=== PATIENT | female | born 1960 | race Caucasian/White ===

== ENCOUNTER 2023-12-25 14:53 | Emergency (ER) | payer MEDICARE, SELFPAY ==
[2023-12-25 14:59] VITALS: BP 148/84; PULSE 50; RESP 16; TEMP 36.4; O2SAT 98; BMI 32.4
--- NOTE | 2023-12-25 15:04 | ED_ITS ---
HPI - Extremity Injury (Lower) <Isa Garcia PA-C - Last Filed: 12/25/23 17:54> General Chief Complaint: Extremity Injury, Lower Stated Complaint: GLF, No Thinners, L Hip/Groin Pain Time Seen by Provider: 12/25/23 15:03 Source: patient Mode of arrival: Ambulatory History of Present Illness HPI Narrative: Patient is a very pleasant 63-year-old female that presents to the emergency room department today with her with complaint of left groin, left buttock pain. Patient fell several days ago after she tripped on [place], she slipped over a piece of wood. Her left leg came out from underneath her, and extended out as she fell. She immediately had some discomfort and pain in the left groin. Which is continued. Patient is having difficulty ambulating due to the discomfort and pain. She has a large bruise on her buttock area. And pain down into the groin area. She does not have any difficulty urinating or having a bowel movement. She does not have any rectal numbness or vaginal n umbness. She does not have any vaginal bulging. Position of comfort is sitting. Position that exacerbates the discomfort and pain is rolling over in bed, standing, or attempting to ambulate. She is able to do all these but has substantial discomfort. Patient has been taking [id number] ibuprofen, Tylenol and Aleve. She has been using ice. Currently when she is sitting she does not have any discomfort or pain. There was no loss of consciousness. She has no other further complaints except some mild elbow discomfort and some wrist pain however that pain has improved over the last several days since the fall. Related Data Previous Rx's Medication Instructions Recorded ondansetron 4 mg disintegrating 4 mg PO BID-TID PRN nausea and 12/25/23 tablet vomiting #10 tabs prednisone 5 mg tablets in a dose See Rx Instructions PO .COMPLEX 12/25/23 pack #21 ea tramadol 50 mg tablet 50 mg PO Q6H PRN pain #20 tabs 12/25/23 Allergies Allergy/AdvReac Type Severity Reaction Status Date / Time oxytetracycline Allergy Verified 12/25/23 15:04 [From Terramycin] piperacillin [From Zosyn] Allergy Hives Verified 12/25/23 15:04 tazobactam [From Zosyn] Allergy Hives Verified 12/25/23 15:04 tetracycline Allergy Verified 12/25/23 15:04 hydromorphone [From Dilaudid] AdvReac Severe Nausea Verified 12/25/23 16:59 Review of Systems <Isa Garcia PA-C - Last Filed: 12/25/23 17:54> Review of Systems Narrative: Negative except as above Musculoskeletal Comments: Left groin pain, left buttock pain. No extremity pain, no back pain. Neurologic Comments: No weakness numbness tingling to the left lower extremity. Patient History <Isa Garcia PA-C - Last Filed: 12/25/23 17:54> Social History Smoking Status: Never smoker Smoking Status: Never smoker alcohol intake frequency: holidays/special occasions only Substance Use Type: does not use Exam <Isa Garcia PA-C - Last Filed: 12/25/23 17:54> Initial Vital Signs Initial Vital Signs: Vital Signs Temperature 97.5 F L 12/25/23 14:59 Pulse Rate 50 L 12/25/23 14:59 Respiratory Rate 16 12/25/23 14:59 Blood Pressure 148/84 H 12/25/23 14:59 Pulse Oximetry 98 12/25/23 14:59 Oxygen Delivery Method Room Air 12/25/23 14:59 Reviewed Const General: cooperative, healthy appearing, comfortable, well developed, well groomed, No acute distress and No in distress Nutritional Appearance: well nourished and overweight Eyes General: Yes appearance normal, both eyes and all related structures Pupils: PERRL EOM: EOM intact bilaterally Skin General: no rashes or lesions noted and turgor normal Neuro General: patient alert, patient awake, patient oriented x3, oriented, tone normal and normal light touch, pain and propioception Cranial Nerves: CN's II-XI intact bilaterally Cognition: normal cognition Speech: speech normal Gait: other (Not tested due to pain however the patient was able to stand and pivot to g) Extrem Left upper extremity: normal to inspection and normal capillary refill; no cyanosis and no edema Other: Left lower extremity patient has no discomfort and pain in the lower lumbar area. She has some mild discomfort in the buttock area. She states she has a bruise. Patient has pain that radiates down into the left groin. She has no pain over the trochanteric area. Her down into the femur. She has no pain in the knee, tib-fib area, foot or ankle. She has pain with movement of the hip, straight leg, and flexing and extending the knee causes discomfort in the groin area. She has discomfort and pain with attempting to raise the knee towards the ceiling. She is pain with palpation of the left groin. No obvious deformity. Cap refill is preserved. Pulses are present. No edema is noted. <Marissa Centeno DO - Last Filed: 01/06/24 07:51> Initial Vital Signs Initial Vital Signs: Vital Signs Temperature 97.5 F L 12/25/23 14:59 Pulse Rate 50 L 12/25/23 14:59 Respiratory Rate 16 12/25/23 14:59 Blood Pressure 148/84 H 12/25/23 14:59 Pulse Oximetry 98 12/25/23 14:59 Oxygen Delivery Method Room Air 12/25/23 14:59 Course <Isa Garcia PA-C - Last Filed: 12/25/23 17:54> Orders Ordered: Discontinued Medications Diphenhydramine HCl (Diphenhydramine 50 Mg/Ml Vial) 25 mg IM NOW ONE Stop: 12/25/23 17:02 Last Admin: 12/25/23 17:05 Dose: 25 mg Documented By: NCI Hydromorphone HCl (Hydromorphone 1 Mg Inj) 1 mg IM NOW ONE Stop: 12/25/23 15:27 Last Admin: 12/25/23 15:53 Dose: 1 mg Documented By: NIC Ondansetron HCl (Ondansetron 4 Mg Odt) 4 mg SL NOW ONE Stop: 12/25/23 15:27 Last Admin: 12/25/23 15:38 Dose: 4 mg Documented By: NIC Ondansetron HCl (Ondansetron 4 Mg Odt) 4 mg SL NOW ONE Stop: 12/25/23 16:24 Last Admin: 12/25/23 16:26 Dose: 4 mg Documented By: NIC 1 mg of IM Dilaudid 4 mg of sublingual Zofran Reevaluation(s) Reevaluation #1: Patient slightly nauseous at about 4:14 p.m. from the Dilaudid. Patient currently sitting in the chair, she is reclined, she has given a cool rag. She has a blue bag if she becomes nauseous and actually vomits. Reevaluation #2: Patient continues to nausea vomiting. Patient had a 2nd dose of Zofran continues to have vomiting. Patient reassessed around 5:00 a.m.. Continues to be sweaty, nasal cannula placed on the patient 2 L, patient resting comfortably. Rechecked around 515 patient continues to have some dry heaves, skin is a little bit more dry, resting comfortably. Continues to have some dry heaves. Five hundred fifteen patient given IM Benadryl. Patient now resting comfortable. We will continue to monitor her. is back he was able to cone picker the prescriptions. Reevaluation #3: better now resting and feeling better. The patient will be DC. Vital Signs Vital signs: Vital Signs - 8 hr 12/25/23 14:59 12/25/23 16:44 Temperature 97.5 F L 97.4 F L Pulse Rate 50 L 54 L Respiratory Rate 16 18 Blood Pressure 148/84 H 156/99 H Pulse Oximetry 98 99 Oxygen Delivery Method Room Air Reviewed <Marissa Centeno DO - Last Filed: 01/06/24 07:51> Orders Ordered: Discontinued Medications Diphenhydramine HCl (Diphenhydramine 50 Mg/Ml Vial) 25 mg IM NOW ONE Stop: 12/25/23 17:02 Last Admin: 12/25/23 17:05 Dose: 25 mg Documented By: NIC Hydromorphone HCl (Hydromorphone 1 Mg Inj) 1 mg IM NOW ONE Stop: 12/25/23 15:27 Last Admin: 12/25/23 15:53 Dose: 1 mg Documented By: NIC Ondansetron HCl (Ondansetron 4 Mg Odt) 4 mg SL NOW ONE Stop: 12/25/23 15:27 Last Admin: 12/25/23 15:38 Dose: 4 mg Documented By: NIC Ondansetron HCl (Ondansetron 4 Mg Odt) 4 mg SL NOW ONE Stop: 12/25/23 16:24 Last Admin: 12/25/23 16:26 Dose: 4 mg Documented By: NIC Vital Signs Vital signs: Vital Signs - 8 hr 12/25/23 14:59 12/25/23 16:44 Temperature 97.5 F L 97.4 F L Pulse Rate 50 L 54 L Respiratory Rate 16 18 Blood Pressure 148/84 H 156/99 H Pulse Oximetry 98 99 Oxygen Delivery Method Room Air MDM - Extremity Injury (Lower) <Isa Garcia PA-C - Last Filed: 12/25/23 17:54> Imaging Data Extremity x-ray #1: Radiologist's Impression: [address] [address] XRay Report Signed Patient: Mihaela Burrows MR#: [id number] : 1960 Acct:[id number] Age/Sex: 63 / F Date of Service: 12/25/23 Loc: ED Accession Number: [id number] Procedure: XR hip w pel if done LT 2V Ordering Provider: Marissa Centeno D.O. in [place]URE: XR HIP W PEL IF DONE LT 2V INDICATIONS: fall /pain TECHNIQUE: 2 views of the hip were acquired. COMPARISON: None. FINDINGS: Bones: No fractures or dislocations. No suspicious bony lesions. The visualized pelvic ring appears intact. Mild degenerative changes of the bilateral hips. Lower lumbar spondylosis. Soft tissues: No suspicious soft tissue calcifications or masses. IMPRESSION: Left hip without acute fracture or dislocation. Degenerative changes of the lower lumbar spine and hip. If there is high clinical suspicion for occult fracture, further evaluation with CT or MRI can be considered. Dictated by: Mayur Somers M.D. on 12/25/2023 at 15:24 Approved by: Mayur Somers M.D. on 12/25/2023 at 15:25 [facility] Narrative Medical decision making narrative: Pleasant 63-year-old female status post a [place] dock, with an outstretched left leg several days ago who now presents to the emergency room department with left buttock and left groin pain. Any type of movement of the leg, causes pain in the groin. Stationary activity decreases her discomfort and pain. Been taking [id number] medications with relief. Now presents to the emergency department due the discomfort and pain. She has no other physical complaints. Hip x-ray done. Currently waiting for the radiologist's read question if there might be a small nondisplaced fracture of the inferior pubic rami on the left side. 1 mg IM Dilaudid 4 mg of sublingual Zofran patient has some mild nausea currently lying in the chair resting with a cool rag Patient now actively vomiting given another 4 mg of sublingual Zofran to see if we can get her vomiting under control Differential diagnosis; fall, groin strain, groin pull, hamstring strain, quad strain, pelvic fracture, hip fracture, Discharge Plan Departure Patient Disposition: Home Clinical Impression: Strain of left groin Activity Restrictions/Additional Instructions: Ice for 72 hours ice and heat slow range of motion take the medications as prescribed. Please do not take the prednisone in the evening. Continue with the Tylenol, ibuprofen, Aleve as needed. Tramadol for severe pain. Please take it easy for the next several days, especially since we are going to be taking a trip. You do not want to over do it so that you are able to take her trip. Please reach out to your primary care doctor. Please reach out to your orthopedic group to see if he can get an appointment prior to leaving for your trip to [facility]. Return to the emergency department as needed. I hope you feel better. Per the radiologist the hip and pelvis are negative for fracture. Prescriptions: New tramadol 50 mg tablet 50 mg PO Q6H PRN (Reason: pain) Qty: 20 0RF prednisone 5 mg tablets,dose pack See Rx Instructions .ROUTE .COMPLEX Qty: 21 0RF Rx Instructions: orally per package directions ondansetron 4 mg tablet,disintegrating 4 mg PO BID-TID PRN (Reason: nausea and vomiting) Qty: 10 0RF Stand Alone Forms: Patient Portal/API ED Sign-out <Marissa Centeno, - Last Filed: 01/06/24 07:51> Cosign ED Attending Yohana Attestation: I was available for consultation.
[2023-12-25] MEDS: ONDANSETRON 4 MG ODT SL ×2 (15:38→16:26)
[2023-12-25] MEDS: HYDROMORPHONE 1 MG INJ IM (15:53)
[2023-12-25 16:44] VITALS: BP 156/99; PULSE 54; RESP 18; TEMP 36.3; O2SAT 99
[2023-12-25] MEDS: diphenhydrAMINE 50 MG/ML VIAL 25 MG IM (17:05)
[2023-12-25 18:48] VITALS: BP 154/99; PULSE 53; RESP 18; O2SAT 99
== END 2023-12-25 18:45 | disposition home or self-care (01) ==
PROVIDERS: Emergency Provider Physician Assistant
DX: S39.011A Strain of muscle, fascia and tendon of abdomen, initial encounter (principal); W01.0XXA Fall on same level from slipping, tripping and stumbling without subsequent striking against object, initial encounter
CPT/HCPCS: 73502; 96372; 99283; J1170; J1200